=== PATIENT | female | born 1960 | race Caucasian/White ===

== ENCOUNTER 2019-04-17 19:29 | Inpatient (IN) | payer MEDICARE ==
[~2019-04-17] VITALS: Ht 167.6 cm; Wt 56.7 kg
[2019-04-17 20:15] VITALS: BP 121/63
--- NOTE | 2019-04-17 20:15 | NUR ---
ED Nurse Note: Patient was brought by ambulance from [facility] due to generalized weakness, diarrhea x1 week. AAO x4, Vss at this time, patient has history of CVA, and due to that has difficulty to speak. Patient has history of suisidal; attempt 3 times, states if she will know how to do that she will do it.
[2019-04-17 20:56] LABS: HEMATOCRIT 41.7 % (37.0-47.0); HEMOGLOBIN 15.2 G/DL (12.0-16.0); MEAN CORPUSCULAR VOLUME 91 FL (80-99); PLATELET COUNT 204 K/UL (150-450); RED CELL DISTRIBUTION WIDTH 10.9 % (11.6-14.8); WHITE BLOOD COUNT 9.6 K/UL (4.8-10.8)
--- NOTE | 2019-04-17 20:59 | Emergency Room Report ---
History of Present Illness General Chief Complaint: Generalized Weakness Source: Patient, Medical Record, EMS Present Illness HPI Patient is a 59-year-old female sent in by nursing facility after increased generalized weakness. Patient reportedly had been having increased diarrhea as well as increased lethargy. She was noted to have prior history of dementia. Allergies: Coded Allergies: No Known Allergies (Unverified , 04/17/19) Patient History Past Medical History: see triage record Reviewed Nursing Documentation: PMH: Agreed; PSxH: Agreed Review of Systems All Other Systems: limited - by poor historian Physical Exam Vital Signs Date Time Temp Pulse Resp B/P (MAP) Pulse Ox O2 Delivery O2 Flow Rate FiO2 04/17/19 19:46 98.2 81 16 121/63 (82) 93 Room Air General Appearance: alert, Chronically Ill ENT: hearing grossly normal Neck: limited range of motion Respiratory: wheezing Cardiovascular #1: normal peripheral pulses, regular rate, rhythm Gastrointestinal: normal inspection Musculoskeletal: other - kyphosis Neurologic: normal inspection, alert, other - confused, no focal deficit Psychiatric: anxious Medical Decision Making Diagnostic Impression: Primary Impression: Episode of generalized weakness Additional Impressions: COPD (chronic obstructive pulmonary disease) Dehydration ER Course Patient presented for increased generalized weakness. Differential diagnosis include was not limited to dehydration, hypokalemia, electrolyte abnormality, myasthenia among others. Because of complexity of patient's case laboratory testing and imaging studies were ordered. Patient was noted to have prior history of COPD as well as dementia. She appeared to be chronically ill. Patient noted to have some mild wheezing was given breathing treatment. Laboratory testing showed normal white blood count as well as normal hemoglobin.Patient be admitted to Dr Andre for inpatient management. Labs Test 04/17/19 20:40 White Blood Count 9.6 K/UL (4.8-10.8) Red Blood Count 4.60 M/UL (4.20-5.40) Hemoglobin 15.2 G/DL (12.0-16.0) Hematocrit 41.7 % (37.0-47.0) Mean Corpuscular Volume 91 FL (80-99) Mean Corpuscular Hemoglobin 33.0 PG (27.0-31.0) Mean Corpuscular Hemoglobin Concent 36.4 G/DL (32.0-36.0) Red Cell Distribution Width 10.9 % (11.6-14.8) Platelet Count 204 K/UL (150-450) Mean Platelet Volume 6.2 FL (6.5-10.1) Neutrophils (%) (Auto) % (45.0-75.0) Lymphocytes (%) (Auto) % (20.0-45.0) Monocytes (%) (Auto) % (1.0-10.0) Eosinophils (%) (Auto) % (0.0-3.0) Basophils (%) (Auto) % (0.0-2.0) Last Vital Signs Date Time Temp Pulse Resp B/P (MAP) Pulse Ox O2 Delivery O2 Flow Rate FiO2 04/17/19 19:46 98.2 81 16 121/63 (82) 93 Room Air Status: improved Disposition: ADMITTED INPATIENT Condition: Stable Referrals: Hattie Andre MD (PCP) Dayo Kimbrough MD April 17, 2019 20:59
[2019-04-17] MEDS ORDERED: Albuterol/Ipratropium 3ml neb HHN ONE (21:00)
--- NOTE | 2019-04-17 21:14 | Diagnostic Imaging Report ---
EXAM: XR Chest, 1 View CLINICAL HISTORY: WEAK TECHNIQUE: Frontal view of the chest. COMPARISON: None FINDINGS: Hardware: None. Lungs/pleura: Normal. No focal consolidation. No pleural effusion or pneumothorax. Heart/mediastinum: Normal. No cardiomegaly. Soft tissues: Unremarkable. Bones: No acute fracture. Fusion changes partially visualized in the lower cervical spine. Upper abdomen: Normal. IMPRESSION: No acute disease identified.
[2019-04-17 21:15] LABS: ALANINE AMINOTRANSFERASE 12 U/L (12-78); ALBUMIN 4.1 G/DL (3.4-5.0); ALBUMIN/GLOBULIN RATIO 1.2 (1.0-2.7); ALKALINE PHOSPHATASE 80 U/L (46-116); ANION GAP 7 mmol/L (5-15); ASPARTATE AMINO TRANSFERASE 11 U/L (15-37); BILIRUBIN,TOTAL 0.2 MG/DL (0.2-1.0); BLOOD UREA NITROGEN 12 mg/dL (7-18); CALCIUM 9.4 MG/DL (8.5-10.1); CARBON DIOXIDE 29 MMOL/L (21-32); CHLORIDE 105 MMOL/L (98-107); POTASSIUM 3.9 MMOL/L (3.5-5.1); SODIUM 141 MMOL/L (136-145)
[2019-04-17 21:25] VITALS: BP 121/63
[2019-04-17] MEDS ORDERED: ACETAMINOPHEN500 M3 ORAL (22:24)
[2019-04-17] MEDS ORDERED: DULCOLAX10 MG RC (22:25)
[2019-04-17] MEDS ORDERED: COLACE100 MG ORAL (22:25)
[2019-04-17] MEDS ORDERED: GABAPENTIN100 MG ORAL (22:26)
[2019-04-17] MEDS ORDERED: KEPPRA500 M4 ORAL (22:26)
[2019-04-17] MEDS ORDERED: FLEET ENEMA133 M1 RC (22:26)
[2019-04-17] MEDS ORDERED: MILK OF MA400 MG/51 ORAL (22:27)
[2019-04-17] MEDS ORDERED: QUETIAPINE FUMA25 MG ORAL (22:27)
[2019-04-17] MEDS ORDERED: SERTRALINE HCL25 MG ORAL (22:28)
[2019-04-17] MEDS ORDERED: ZOFRAN4 M3 ORAL (22:28)
--- NOTE | 2019-04-17 23:13 | NUR ---
NURSE NOTES: Received patient from ED, report is given by Meli CARSON, patient was transported by gurney, can ambulate with assistance, patient states that she has trouble with her vision, seeing shadows, no acute distress noted, orders obtained from MD and carried out. Patient was oriented to the room, call light is within reach, bed is in low position, locked and alarm is on. Will continue to monitor for safety and comfort. Consult been ordered with Dr. Mar as patient has history with suicidal ideations.
[2019-04-17] MEDS ORDERED: Albuterol/Ipratropium 3ml neb HHN PRN (23:45)
[2019-04-18] VITALS: BP 131/70
[2019-04-18] MEDS ORDERED: Fleet's Enema 133ml RECTAL PRN
[2019-04-18] MEDS: Acetaminophen 500mg (ES) tab ORAL SCH ×4 (00:47→18:00)
--- NOTE | 2019-04-18 01:56 | NUR ---
ED Nurse Note: Patient was admited to [facility] due to generalized weakness, diarrhea x 1 weeks, dehydration. AAO x4, VSS at this time, skin is dry, intact. Patient was transfered via [facility] belongings.
[2019-04-18 06:49] LABS: BASOPHILS % (AUTO) 1.3 % (0.0-2.0); EOSINOPHILS % (AUTO) 4.7 % (0.0-3.0); HEMATOCRIT 40.4 % (37.0-47.0); HEMOGLOBIN 14.3 G/DL (12.0-16.0); LYMPHOCYTES % (AUTO) 49.9 % (20.0-45.0); MEAN CORPUSCULAR VOLUME 95 FL (80-99); MONOCYTES % (AUTO) 6.7 % (1.0-10.0); NEUTROPHILS % (AUTO) 37.5 % (45.0-75.0); PLATELET COUNT 181 K/UL (150-450); RED BLOOD COUNT 4.26 M/UL (4.20-5.40); RED CELL DISTRIBUTION WIDTH 11.4 % (11.6-14.8); WHITE BLOOD COUNT 7.7 K/UL (4.8-10.8)
--- NOTE | 2019-04-18 06:59 | NUR ---
HAND-OFF: Report given to Jefe CARSON. Addendum: 04/18/19 at 0701 by TIM PENA RN Report is given to Sravani CARSON
[2019-04-18 07:05] LABS: ALANINE AMINOTRANSFERASE 11 U/L (12-78); ALBUMIN 3.5 G/DL (3.4-5.0); ALBUMIN/GLOBULIN RATIO 1.1 (1.0-2.7); ALKALINE PHOSPHATASE 71 U/L (46-116); ANION GAP 9 mmol/L (5-15); ASPARTATE AMINO TRANSFERASE 17 U/L (15-37); BILIRUBIN,TOTAL 0.4 MG/DL (0.2-1.0); BLOOD UREA NITROGEN 10 mg/dL (7-18); CARBON DIOXIDE 26 MMOL/L (21-32); CHLORIDE 108 MMOL/L (98-107); CHOLESTEROL 100 MG/DL (< 200); CREATININE 1.1 MG/DL (0.55-1.30); HDL CHOLESTEROL 42 MG/DL (40-60); POTASSIUM 3.7 MMOL/L (3.5-5.1); SODIUM 143 MMOL/L (136-145); TRIGLYCERIDES 132 MG/DL (30-150)
--- NOTE | 2019-04-18 07:30 | NUR ---
NURSE NOTES: RECEIVED PATIENT A/A/OX4 IN BED LYING COMFORTABLY, NO C/O PAIN/DISCOMFORT NOTED. ABLE TO AMBULATE. VERBALIZE NEEDS. BED IS IN THE LOWEST POSITION. SIDERAILS ARE UP X2. BED ALARM IS ON AND LOCK. CALL LIGHT IS WITHIN REACH. WILL CONT TO MONITOR.
[2019-04-18 08:00] VITALS: BP 128/78
--- NOTE | 2019-04-18 08:27 | History & Physical ---
History and Physical History & Physicial Dictation completed. Hattie Andre MD Apr 18, 2019 08:27
--- NOTE | 2019-04-18 08:28 | General Progress Note ---
Assessment/Plan Assessment/Plan: Seen and examined. 1- Ataxic gate 2- Deconditioning 3- Weakness Plan: psych, Neuro, PT /OT consulted Subjective Allergies: Coded Allergies: No Known Allergies (Unverified , 04/17/19) Objective Last 24 Hour Vital Signs Date Time Temp Pulse Resp B/P (MAP) Pulse Ox O2 Delivery O2 Flow Rate FiO2 04/18/19 00:00 98.1 81 18 131/70 (90) 04/17/19 23:09 Room Air 04/17/19 22:50 98.0 78 18 145/76 99 Room Air 04/17/19 21:41 84 18 100 Room Air 21 04/17/19 21:30 78 18 98 Room Air 21 04/17/19 21:30 76 18 98 Room Air 21 04/17/19 21:25 98.2 78 16 121/63 93 Room Air 04/17/19 20:15 81 16 Room Air 04/17/19 20:15 98.2 16 121/63 93 Room Air 04/17/19 19:46 98.2 81 16 121/63 (82) 93 Room Air Laboratory Tests 04/17/19 20:40: White Blood Count 9.6, Red Blood Count 4.60, Hemoglobin 15.2, Hematocrit 41.7, Mean Corpuscular Volume 91, Mean Corpuscular Hemoglobin 33.0H, Mean Corpuscular Hemoglobin Concent 36.4H, Red Cell Distribution Width 10.9L, Platelet Count 204 , Mean Platelet Volume 6.2L, Neutrophils (%) (Auto) , Lymphocytes (%) (Auto) , Monocytes (%) (Auto) , Eosinophils (%) (Auto) , Basophils (%) (Auto) , Differential Total Cells Counted 100, Neutrophils % (Manual) 28L, Lymphocytes % (Manual) 63H, Monocytes % (Manual) 6, Eosinophils % (Manual) 2, Basophils % ( Manual) 1, Band Neutrophils 0, Platelet Estimate Adequate, Platelet Morphology Normal, Red Blood Cell Morphology Normal, Sodium Level 141, Potassium Level 3.9 , Chloride Level 105, Carbon Dioxide Level 29, Anion Gap 7, Blood Urea Nitrogen 12, Creatinine 1.0, Estimat Glomerular Filtration Rate 56.5, Glucose Level 95, Lactic Acid Level 1.30, Calcium Level 9.4, Total Bilirubin 0.2, Aspartate Amino Transf (AST/SGOT) 11L, Alanine Aminotransferase (ALT/SGPT) 12, Alkaline Phosphatase 80, Total Protein 7.6, Albumin 4.1, Globulin 3.5, Albumin/Globulin Ratio 1.2 04/18/19 05:20: White Blood Count 7.7, Red Blood Count 4.26, Hemoglobin 14.3, Hematocrit 40.4, Mean Corpuscular Volume 95, Mean Corpuscular Hemoglobin 33.5H, Mean Corpuscular Hemoglobin Concent 35.4, Red Cell Distribution Width 11.4L, Platelet Count 181, Mean Platelet Volume 6.9, Neutrophils (%) (Auto) 37.5L, Lymphocytes (%) (Auto) 49.9H, Monocytes (%) (Auto) 6.7, Eosinophils (%) (Auto) 4.7H, Basophils (%) ( Auto) 1.3, Sodium Level 143, Potassium Level 3.7, Chloride Level 108H, Carbon Dioxide Level 26, Anion Gap 9, Blood Urea Nitrogen 10, Creatinine 1.1, Estimat Glomerular Filtration Rate 50.7, Glucose Level 83, Calcium Level 9.0, Total Bilirubin 0.4, Aspartate Amino Transf (AST/SGOT) 17, Alanine Aminotransferase ( ALT/SGPT) 11L, Alkaline Phosphatase 71, Total Protein 6.7, Albumin 3.5, Globulin 3.2, Albumin/Globulin Ratio 1.1, Hemoglobin A1c 5.1, Triglycerides Level 132, Cholesterol Level 100, LDL Cholesterol 41, HDL Cholesterol 42, Cholesterol/HDL Ratio 2.4L Height (Feet): 5 Height (Inches): 6.00 Weight (Pounds): 125 Hattie Andre MD Apr 18, 2019 08:28
[2019-04-18] MEDS: Milk of Magnesia 30ml Ud ORAL SCH (10:08)
[2019-04-18] MEDS: Sertraline 50mg tab ORAL SCH (10:09)
[2019-04-18] MEDS: Docusate 100mg cap ORAL SCH ×2 (10:09→18:00)
[2019-04-18] MEDS: Enoxaparin 40mg Inj SUBQ SCH (10:10)
--- NOTE | 2019-04-18 11:00 | NUR ---
NURSE NOTES: upper and lower dentures are placed in orange container. No acute resp distress noted. No c/o pain/discomfort noted. siderails are padded sec to seizures. patient is legally blind and instructed to call and use the call light whenever she needs to go to the bathroom. bed is in the lowest position. siderails are up x3. bed is lock @ all times and alarm activated. will cont to monitor.
[2019-04-18 12:00] VITALS: BP 104/73
[2019-04-18 16:00] VITALS: BP 115/69
--- NOTE | 2019-04-18 16:50 | NUR ---
NURSE NOTES: Sravani MORATAYA brought patient by bed in stable condition. Alert and oriented x4. No complain of pain or distress at this time. IV dressing intact and dry. Belonging checked. Bed lowest position. Call light within reach. Will continue to monitor.
--- NOTE | 2019-04-18 17:01 | NUR ---
NURSE NOTES: transferred patient to [facility] rm [id number]. report given to YAMILETH Nunez. patient is in stable condition. personal belongings noted. upper and lower dentures are placed in orange container. $40 is in the bridget pocket and added on the list. reviewed and noted with YAMILETH Nunez. No acute resp distress noted. No c/o pain/discomfort noted. siderails are padded sec to seizures. patient is legally blind and instructed to call and use the call light whenever she needs to go to the bathroom. bed is in the lowest position. siderails are up x3. bed is lock @ all times and alarm activated. will cont to monitor.
--- NOTE | 2019-04-18 17:38 | NUR ---
CASE MANAGEMENT: INITIAL REVIEW 59 YO F CAROL FROM [facility] CC: GEN WEAKNESS. PMHx: POOR HISTORIAN SI:WEAKNESS. COLITIS. T 98.2 HR 81 RR 16 B/P 121/63 SATS 93% ONRA AST 11 IS: NS BOLUS X1 PATIENT ADMITTED TO MED/SURG 04/17/2019 @ 2046 DCP: PATIENT TO BE DISCHARGED TO SNF ONCE MEDICALLY CLEARED.
--- NOTE | 2019-04-18 19:30 | NUR ---
NURSE NOTES: Received patient from Adwoa RN. Patient asleep in bed, arousable to name, on room air, no s/s respiratory distress. Alert and oriented x3. Bed in low position, bed locked, call light within reach. Instructed patient to call for staff assistance if she needs to go to the bathroom.
--- NOTE | 2019-04-18 19:30 | NUR ---
HAND-OFF: Report given to Cecilio CARSON. Patient in stable condition.
[2019-04-18 20:00] VITALS: BP 123/77
--- NOTE | 2019-04-18 20:50 | NUR ---
NURSE NOTES: Patient c/o cough, administered cepacol lozenge prn.
--- NOTE | 2019-04-18 22:00 | NUR ---
NURSE NOTES: Patient asleep in bed, no further coughing observed, bed in low position, locked.
--- NOTE | 2019-04-18 22:15 | History and Physical Report ---
DATE OF ADMISSION: 04/17/2019 SOURCE OF INFORMATION: Patient and EMR. HISTORY OF PRESENT ILLNESS: The patient is a 59-year-old female with history of nonspecific neurologic disease manifested by ambulation and gait problem and tremors recently. The patient is currently residing in a [place] [facility] facility and has been noticed to manifest more weakness and problem with the gait. The patient is suffering from dementia and has been noticed recently that is less coherent, ended up with a concern of altered mental status. Initial evaluation in the emergency room shows stable vital signs. The patient has been admitted for additional evaluations. At the time of evaluation, the patient appears to be a poor historian, however, denies chest pain, shortness of breath, nausea, vomiting, diarrhea, or constipation. No fever. No chills. No productive cough. ALLERGIES: NKDA. PAST MEDICAL HISTORY: Including, but not limited to chronic pain, psychiatric disorder, COPD. FAMILY HISTORY: Noncontributory. SOCIAL HISTORY: The patient denies history of illicit drug abuse, smoking, or alcohol abuse (cannot be verified). PHYSICAL EXAMINATION: VITAL SIGNS: Blood pressure 120/60, temperature 98.2, pulse ox 98% on room air, pulse rate 81, respiratory rate 18. HEAD AND NECK: Atraumatic and normocephalic. CHEST: Clear to auscultation. HEART: S1 and S2. Regular rate and rhythm. ABDOMEN: Soft. No organomegaly. MUSCULOSKELETAL: Nonspecific tremors in the extremities. Diffuse weakness and deconditioning in the extremities, wide base gait, assistant activities director for ambulation. NEUROLOGIC: The patient is awake and alert x2. LABORATORY AND DIAGNOSTIC DATA: Labs dated 04/17/2019 shows WBC 9.6, hemoglobin 15.2, and platelets of 204,000. Chest x-ray dated 04/17/2019 is unremarkable for any acute pathology. ASSESSMENT AND PLAN: 1. Ataxia, timeline unknown. 2. Deconditioning. 3. COPD. 4. Generalized weakness. PLAN OF CARE: We will resume home medications. We will consult the psychiatrist, Neurology, PT, OT. Hattie Andre M.D. DR: Casi JOB#: [id number] CC:
[2019-04-19] VITALS: BP 117/74
[2019-04-19] MEDS: Acetaminophen 500mg (ES) tab ORAL SCH ×4 (00:40→18:04)
[2019-04-19 04:00] VITALS: BP 141/78
[2019-04-19 08:00] VITALS: BP 104/71
--- NOTE | 2019-04-19 08:02 | NUR ---
HAND-OFF: Report given to Gwen CARSON. Plan of care endorsed.
--- NOTE | 2019-04-19 08:13 | NUR ---
NURSE NOTES: Pt laying in bed, breakfast is at bedside. Refused to eat, refused substitute.
[2019-04-19] MEDS: Enoxaparin 40mg Inj SUBQ SCH ×3 (09:00→09:36)
[2019-04-19] MEDS: Sertraline 50mg tab ORAL SCH (09:29)
[2019-04-19] MEDS: Docusate 100mg cap ORAL SCH ×2 (09:33→17:31)
[2019-04-19] MEDS: Milk of Magnesia 30ml Ud ORAL SCH (09:33)
--- NOTE | 2019-04-19 10:59 | General Progress Note ---
Assessment/Plan Assessment/Plan: PHYSICAL EXAMINATION: VITAL SIGNS: Blood pressure 120/60, temperature 98.2, pulse ox 98% on room air, pulse rate 81, respiratory rate 18. HEAD AND NECK: Atraumatic and normocephalic. CHEST: Clear to auscultation. HEART: S1 and S2. Regular rate and rhythm. S: I am very weak O: seem comfortable, complaint of lack of energy. ABDOMEN: Soft. No organomegaly. MUSCULOSKELETAL: Nonspecific tremors in the extremities. Diffuse weakness and deconditioning in the extremities, wide base gait, golf course assistant for ambulation. NEUROLOGIC: The patient is awake and alert x2. LABORATORY AND DIAGNOSTIC DATA: Labs dated Apr 18 reviewed Chest x-ray dated 04/17/2019 is unremarkable for any acute pathology. ASSESSMENT AND PLAN: 1. Ataxia, timeline unknown. 2. Deconditioning. 3. COPD. 4. Generalized weakness. Plan: Pending psych, Neuro, Evaluation Subjective Allergies: Coded Allergies: No Known Allergies (Unverified , 04/17/19) Objective Last 24 Hour Vital Signs Date Time Temp Pulse Resp B/P (MAP) Pulse Ox O2 Delivery O2 Flow Rate FiO2 04/19/19 04:00 98.1 69 20 141/78 (99) 97 04/19/19 00:00 97.6 74 22 117/74 (88) 95 04/18/19 21:00 Room Air 04/18/19 20:00 97.8 62 12 123/77 (92) 96 04/18/19 16:00 98.0 68 17 115/69 (84) 95 04/18/19 12:53 98.6 04/18/19 12:00 97.5 82 17 104/73 (83) 94 Intake and Output 04/18/19 04/19/19 18:59 06:59 Intake Total 240 ml 240 ml Balance 240 ml 240 ml Intake Oral 240 ml 240 ml # Voids 2 2 # Bowel Movements 1 Height (Feet): 5 Height (Inches): 6.00 Weight (Pounds): 125 Hattie Andre MD Apr 19, 2019 10:59
--- NOTE | 2019-04-19 11:18 | NUR ---
NURSE NOTES: Pt sates she is blind therefore call light is in reach. Encouraged pt to put irrigation technician light for assistance. " I have been managing , and will manage" Risk of falling explained. " Fall, I can mange" Did not want to answer questions related to vision, far as images, color , completeness. Placed cover over her head, while teletypewriter operator was speaking to her. Refused Lovenox. Risk and benefit explained. " I do not care Im getting another shot!
--- NOTE | 2019-04-19 11:32 | NUR ---
NURSE NOTES: Pt is not able to reciprocate pt teaching, does not cooperate
[2019-04-19 12:00] VITALS: BP 110/77
[2019-04-19 16:00] VITALS: BP 104/63
--- NOTE | 2019-04-19 19:04 | NUR ---
NURSE NOTES: Requires frequent rounds due to impaired vision. Assisted with grooming. Pt did not eat much states that is her norm. Stool softener held due to report of loose stool no bm this shift. Pt states she has not gotten use to be blind. Lost her vision as a result of a sz. See shadows. Encouraged to press call light for bathroom needs
--- NOTE | 2019-04-19 19:45 | NUR ---
NURSE NOTES: Report taken from YAMILETH Hidalgo. Patient in bed and awake, A&Ox3. No signs of distress on room air. Minor complaint of pain, stating having a constant headache, 3/. No skin issues. IV site c/d/i no fluid running currently. Patient is legally blind, needs assistance with most activities. Able to ambulate with assist. Bed in lowest position, call light within reach.
--- NOTE | 2019-04-19 19:56 | NUR ---
HAND-OFF: Report given to Oskar CARSON.
[2019-04-19 20:00] VITALS: BP 106/70
--- NOTE | 2019-04-19 23:47 | Consultation ---
History of Present Illness General Date patient seen: Apr 19, 2019 Chief Complaint: Generalized Weakness Referring physician: Dr. Andre Present Illness HPI The patient is a 59-year-old female with history of nonspecific neurologic disease manifested by ambulation and gait problem and tremors recently. The patient is currently residing in a custodial facility and has been noticed to manifest more weakness and problem with the gait. The patient is suffering from dementia and has been noticed recently that is less coherent, ended up with a concern of altered mental status. Initial evaluation in the emergency room shows stable vital signs. The patient has been admitted for additional evaluations. At the time of evaluation, the patient appears to be a poor historian, however, denies chest pain, shortness of breath, nausea, vomiting, diarrhea, or constipation. No fever. No chills. No productive cough. She has some facial asymmetry but she is essentially non focal on exam. Allergies: Coded Allergies: No Known Allergies (Unverified , 04/17/19) Medication History Scheduled Acetaminophen* (Acetaminophen Extra Strength*), 500 MG ORAL Q6H, (Reported) Docusate Sodium* (Colace*), 100 MG ORAL TWICE A DAY, (Reported) Enoxaparin* (Lovenox*), 40 MG SUBQ DAILY, (Reported) Gabapentin* (Gabapentin*), 100 MG ORAL THREE TIMES A DAY, (Reported) Ipratropium/Albuterol Sulfate (DuoNeb 0.5-3(2.5)mg/3ml), 3 ML HHN Q6HR, ( Reported) Levetiracetam (Keppra), 500 MG ORAL EVERY 12 HOURS, (Reported) Levofloxacin* (Levaquin*), 500 MG ORAL DAILY, (Reported) Magnesium Hydroxide* (Milk Of Magnesia*), 30 ML ORAL DAILY, (Reported) Quetiapine Fumarate* (Seroquel*), 50 MG ORAL DAILY, (Reported) Sertraline Hcl* (Sertraline Hcl*), 50 MG ORAL DAILY, (Reported) Scheduled PRN Ondansetron* (Zofran*), 4 MG ORAL Q4HR PRN for Nausea & Vomiting, (Reported) Discontinued Medications Bisacodyl (Dulcolax), 10 MG RC, (Reported) Discontinued Reason: MD discontinued med Dextromethorphan Hbr/B-Fabrizio (Cepacol Sorethroat-Cough Joel*), 1 LOZENGE ORAL, ( Reported) Discontinued Reason: discontinued med Moy Santizo/Karan Santizo (Fleet Enema), 133 ML RC, (Reported) Discontinued Reason: MD discontinued med Patient History Limited by: medical condition History Provided By: Patient, Medical Record Healthcare decision maker Resuscitation status Do Not Resuscitate Advanced Directive on File No Review of Systems Constitutional: Denies: no symptoms, see HPI, chills, sweats, fever, malaise, weakness, other Eye: Denies: no symptoms, see HPI, eye pain, blurred vision, tearing, double vision, nose pain, nose congestion, acuity changes, discharge, other ENT: Denies: no symptoms, see HPI, ear pain, ear discharge, nose pain, nose congestion, throat pain, throat swelling, mouth pain, hearing loss, nasal discharge, other Respiratory: Denies: no symptoms, see HPI, cough, orthopnea, shortness of breath, stridor, wheezing, SALINAS, sputum, other Cardiovascular: Denies: no symptoms, see HPI, chest pain, edema, palpitations, syncope, PND, other Gastrointestinal: Denies: no symptoms, see HPI, abdominal pain, constipation, diarrhea, nausea, vomiting, melena, hematemesis, other Genitourinary: Denies: no symptoms, see HPI, discharge, dysuria, frequency, hematuria, pain, retention, incontinence, urgency, vag bleed/dc, other Musculoskeletal: Denies: no symptoms, see HPI, back pain, gout, joint pain, joint swelling, muscle pain, muscle stiffness, other Skin: Denies: no symptoms, see HPI, rash, change in color, change in hair/nails , dryness, lesions, other Psychiatric: Denies: no symptoms, see HPI, prior hx, anxiety, depressed feelings, emotional problems, SI, HI, hallucinations, other Neurological: Denies: no symptoms, see HPI, headache, numbness, paresthesia, seizure, tingling, tremors, focal weakness, syncope, dizziness, other Endocrine: Denies: no symptoms, see HPI, excessive sweating, flushing, intolerance to temperature, increased thirst, increased urine, unexplained weight loss, other Hematologic/Lymphatic: Denies: no symptoms, see HPI, anemia, blood clots, easy bleeding, easy bruising, swollen glands, diathesis, other Physical Exam General Appearance: WD/WN, no apparent distress, lethargic, confused Lines, tubes and drains: peripheral HEENT: normocephalic, atraumatic, anicteric, mucous membranes moist, PERRL, EOMI, pharynx normal, supple, no JVD Neck: non-tender, normal alignment, supple, normal inspection Respiratory/Chest: chest wall non-tender, lungs clear, normal breath sounds, no respiratory distress, no accessory muscle use Cardiovascular/Chest: no gallop/murmur, no JVD Extremities: no calf tenderness, normal capillary refill, non-pitting, no edema , no cyanosis Skin Exam: normal pigmentation, warm/dry Neurologic: abnormal gait, alert, responsive, abnormal CN, motor weakness, disoriented, depressed affect, other - Tremulous with fluctuating facial asymmetry- non focal exam but generally weak throughout with intention tremor on exam Last 24 Hour Vital Signs Date Time Temp Pulse Resp B/P (MAP) Pulse Ox O2 Delivery O2 Flow Rate FiO2 04/19/19 21:00 Room Air 04/19/19 20:00 97.8 65 16 106/70 (82) 96 04/19/19 16:00 98.2 73 16 104/63 (77) 04/19/19 12:00 97.7 69 18 110/77 (88) 98 04/19/19 09:00 Room Air 04/19/19 08:00 98.5 16 104/71 (82) 98 04/19/19 04:00 98.1 69 20 141/78 (99) 97 04/19/19 00:00 97.6 74 22 117/74 (88) 95 Intake and Output 04/18/19 04/19/19 19:00 07:00 Intake Total 240 ml 240 ml Balance 240 ml 240 ml Intake Oral 240 ml 240 ml # Voids 2 2 # Bowel Movements 1 Height (Feet): 5 Height (Inches): 6.00 Weight (Pounds): 125 Medications Current Medications Medications (Trade) Dose Ordered Sig/Emil Route PRN Reason Start Time Stop Time Status Last Admin Dose Admin Acetaminophen (Tylenol) 500 mg Q6H ORAL 04/18/19 00:00 05/18/19 00:00 04/19/19 18:04 Albuterol/ Ipratropium (Albuterol/ Ipratropium) 3 ml Q6H PRN HHN Shortness of Breath 04/17/19 23:45 04/22/19 23:44 Cetylpyridinium Chloride (Cepacol) 1 lozg Q2H PRN CHI For Cough 04/17/19 23:45 05/17/19 23:44 04/18/19 20:50 Docusate Sodium (Colace) 100 mg TWICE A DAY ORAL 04/18/19 09:00 05/18/19 08:59 04/18/19 10:09 Enoxaparin Sodium (Lovenox) 40 mg DAILY SUBQ 04/18/19 09:00 05/18/19 08:59 04/18/19 10:10 Gabapentin (Neurontin) 100 mg THREE TIMES A DAY ORAL 04/18/19 09:00 05/18/19 08:59 04/19/19 17:31 Levetiracetam (Keppra) 500 mg EVERY 12 HOURS ORAL 04/18/19 09:00 05/18/19 08:59 04/19/19 20:52 Levofloxacin 100 ml @ 100 mls/hr Q24H IVPB 04/18/19 01:00 04/25/19 00:59 04/19/19 00:40 Magnesium Hydroxide (Mom) 30 ml DAILY ORAL 04/18/19 09:00 05/18/19 08:59 04/18/19 10:08 Ondansetron HCl (Zofran) 4 mg Q4H PRN ORAL Nausea & Vomiting 04/18/19 00:00 05/18/19 00:00 Quetiapine Fumarate (SEROquel) 50 mg DAILY ORAL 04/18/19 09:00 05/18/19 08:59 04/19/19 09:30 Sertraline HCl (Zoloft) 50 mg DAILY ORAL 04/18/19 09:00 05/18/19 08:59 04/19/19 09:29 Assessment/Plan Problem List: (1) Weak ICD Codes: R53.1 - Weakness SNOMED: 14941340 (2) Dementia ICD Codes: F03.90 - Unspecified dementia without behavioral disturbance SNOMED: 16397515 (3) Parkinsonian tremor ICD Codes: G20 - Parkinson's disease SNOMED: 205235985 Status: stable Assessment/Plan: Continue Q4 Hour Neuro OBs Consider MRI to rule out any acute or chronic stroke May have as outpatient. Likely Parkinsonian presentation. Can confirm this with KIMBERLY scan as outpatient. Patient denies seizure disorder at this time. SBP<140 Check TSH Na 135-145 ASA 81mg QD Pam Bradford N.P. Apr 19, 2019 23:47
[2019-04-20] VITALS: BP 110/60
[2019-04-20] MEDS: Acetaminophen 500mg (ES) tab ORAL SCH ×4 (00:12→17:22)
[2019-04-20 04:00] VITALS: BP 128/62
--- NOTE | 2019-04-20 07:18 | NUR ---
HAND-OFF: Report given to YAMILETH Orona. Patient is asleep in bed, VS stable.
--- NOTE | 2019-04-20 07:25 | NUR ---
NURSE NOTES: ASLEEP.PAIN SCALE 3/10. IN NO APPARENT DISTRESS.
[2019-04-20 08:00] VITALS: BP 109/57
[2019-04-20] MEDS: Docusate 100mg cap ORAL SCH ×2 (08:35→17:22)
[2019-04-20] MEDS: Sertraline 50mg tab ORAL SCH (08:35)
[2019-04-20] MEDS: Milk of Magnesia 30ml Ud ORAL SCH (08:36)
[2019-04-20] MEDS: Enoxaparin 40mg Inj SUBQ SCH (08:38)
--- NOTE | 2019-04-20 10:23 | General Progress Note ---
Assessment/Plan Assessment/Plan: S: I am feeling very tired O: appears comfortable, needs help for adls PHYSICAL EXAMINATION:HEAD AND NECK: Atraumatic and normocephalic. CHEST: Clear to auscultation. HEART: S1 and S2. Regular rate and rhythm.ABDOMEN: Soft. No organomegaly. MUSCULOSKELETAL: Nonspecific tremors in the extremities. Diffuse weakness and deconditioning in the extremities, wide base gait, college sports assistant for ambulation. NEUROLOGIC: The patient is awake and alert x2. LABORATORY AND DIAGNOSTIC DATA: Labs dated Apr 19 reviewed Chest x-ray dated 04/17/2019 is unremarkable for any acute pathology. ASSESSMENT AND PLAN: 1. Ataxia, timeline unknown. 2. Deconditioning. 3. COPD. 4. Generalized weakness. Plan: Notes from Neuro reviewed Subjective Allergies: Coded Allergies: No Known Allergies (Unverified , 04/17/19) Objective Last 24 Hour Vital Signs Date Time Temp Pulse Resp B/P (MAP) Pulse Ox O2 Delivery O2 Flow Rate FiO2 04/20/19 08:00 98.8 61 20 109/57 (74) 99 04/20/19 04:00 97.6 60 16 128/62 (84) 96 04/20/19 00:00 97.8 64 16 110/60 (77) 94 04/19/19 21:00 Room Air 04/19/19 20:00 97.8 65 16 106/70 (82) 96 04/19/19 19:08 71 18 97 Room Air 21 04/19/19 16:00 98.2 73 16 104/63 (77) 04/19/19 12:00 97.7 69 18 110/77 (88) 98 Intake and Output 04/19/19 04/20/19 19:00 07:00 Intake Total 500 ml Balance 500 ml Intake Oral 500 ml # Voids 3 2 Height (Feet): 5 Height (Inches): 6.00 Weight (Pounds): 125 Hattie Andre MD Apr 20, 2019 10:23
[2019-04-20 12:00] VITALS: BP 106/59
--- NOTE | 2019-04-20 13:15 | NUR ---
DISCHARGE PLAN CLINICALS FAXED TO [facility] [address] T: [phone] F: [phone] AWAIT ROOM ASSIGNMENT
--- NOTE | 2019-04-20 13:19 | NUR ---
CASE MANAGEMENT:REVIEW 04/20/19 SI: ATAXIA. COPD 98.8 61 20 109/57 99% ON RA IS: LEVAQUIN PO QD NEURONTIN PO TID KEPPRA PO Q12 ZOLOFT PO QD LOVENOX SQ QD : MED/SURG STATUS [address] [facility]
--- NOTE | 2019-04-20 14:28 | NUR ---
DISCHARGE PLANNED PATIENT WILL RETURN TO [facility] [address] ROOM [address] SKILLED T: [phone] FOR NURSE TO NURSE REPORT [facility] HAS BEEN ARRANGED FOR [address]
[2019-04-20] MEDS ORDERED: LOVENOX10 M4 SUBQ (14:41)
[2019-04-20] MEDS ORDERED: LEVAQUIN500 MG ORAL (14:42)
[2019-04-20] MEDS ORDERED: DUONEB 0.5-3(2.53 ML HHN (14:44)
[2019-04-20] MEDS ORDERED: CEPACOL SORETH1 EACH ORAL (14:45)
[2019-04-20 16:02] VITALS: BP 128/75
--- NOTE | 2019-04-20 19:00 | NUR ---
NURSE NOTES: RESTING IN BED. IN NO DISTRESS. FOR TRANSFER TO [facility]. REPORT GIVE TO GABRIELE CARSON. WAITING FOR AMBULANCE FOR SHANK SANDER.
--- NOTE | 2019-04-20 19:33 | NUR ---
HAND-OFF: Report given to FLY MARIE.
--- NOTE | 2019-04-20 19:39 | NUR ---
NURSE NOTES: Received patient in bed, awake, alert, oriented, awaiting to be discharged to [facility] rehab, verified with ambulance on [facility]. Patient is stable at this time.
--- NOTE | 2019-04-21 00:30 | Progress Note ---
DATE: 04/20/2019 SUBJECTIVE: The patient is calm and cooperative, sitting on her bed, has episodes of anxiety. She has cognitive impairment, poor memory. She knows her name and she knows in the hospital, more clear today. MENTAL STATUS EXAMINATION: The patient is alert and oriented to time, self, and place. Mood is neutral to anxious. Affect is constricted. Congruent with mood. Thought process is concrete. Thought content, no suicidal or homicidal ideation. ASSESSMENT: 1. Dementia. 2. Anxiety disorder. 3. Depression. PLAN: We will continue current medications. Provide the patient with reality orientation and supportive therapy. Dia Mar M.D. DR: CAROLINE JOB#: [id number] CC:
--- NOTE | 2019-04-21 08:00 | Consultation ---
DATE OF CONSULTATION: 04/19/2019 HISTORY OF PRESENT ILLNESS: The patient is a 59-year-old female with a history of COPD, chronic pain, dementia, depression, and anxiety, who has been admitted to the hospital for medical stabilization. The patient during the evaluation is having cognitive impairment and is not engaged during the evaluation and unable to provide history, has anxiety, depressed mood, anhedonia, worthless, and hopelessness. The patient was seen on . PAST PSYCHIATRIC HISTORY: Depression, anxiety, and dementia. PAST MEDICAL HISTORY: As above. ALLERGIES: No known drug allergies. SUBSTANCE ABUSE HISTORY: No known history of illicit drug use or alcohol. MENTAL STATUS EXAMINATION: The patient is alert and oriented times self and place. Mood is anxious and dysphoric. Affect is constricted, congruent with mood. Thought process is concrete. Thought content, no suicidal or homicidal ideation. Memory is impaired. ASSESSMENT: AXIS I: Major depressive disorder, anxiety disorder, and dementia. AXIS II: Deferred. AXIS III: As above. AXIS IV: Low. AXIS V: 25. PLAN: 1. The patient will be continued on Zoloft. 2. Continue the Seroquel. 3. Provide the patient with reality orientation and supportive therapy. Dia Mar M.D. DR: ERIKA JOB#: [id number] CC:
[2019-04-21] MEDS ORDERED: Levofloxacin 500mg tab ORAL SCH (09:00)
--- NOTE | 2019-04-21 12:03 | Discharge Summary ---
Discharge Summary Discharge Summary _ DATE OF ADMISSION: 04/17/2019 DATE OF DISCHARGE: 04/20/2019 DISCHARGED BY: Dr. Andre REASON FOR ADMISSION: 59 years old female with past medical history of CVA, seizure disorder, was sent from the senior care facility for evaluation due to generalized weakness. Patient reportedly had diarrhea and increased lethargy. Upon evaluation vital signs were stable. Laboratory work-up revealed no leukocytosis , hemoglobin 15.2 , hematocrit 41.7 , platelet count 204. Stable electrolytes and renal parameters. Lactic acid 1.3. Chest x-ray revealed no acute cardiopulmonary pathology. Patient subsequently was admitted for further management. CONSULTANTS: neurologist Dr. Hinton psychiatrist [facility] COURSE: Patient admitted to medical surgical floor. Patient started on gentle IV hydration. Renal parameters and electrolytes were closely monitored and remained stable. No diarrhea. Neurology and psychiatric evaluation were requested. Home medications were resumed. Lipid panel remained stable. No evidence of infection. Seizure precaution maintained. Keppra continued. No evidence of seizure activity while in the hospital. Patient was working with physical therapist. Fall precaution maintained. DVT prophylaxis provided. Neurologist followed. Per neurologist, patient likely had Parkinsonian presentation with Parkinsonian tremor. It can be confirmed with KIMBERLY scan as outpatient. Neuro-checks were done every 4 hours, no changes. Neurologist recommended MRI , which can be done as an outpatient. Supplemental oxygen provided as needed to keep pulse oximetry above 92%. Pulmonary toilet was on standby as needed. Pulse oximetry was stable on room air. No signs of respiratory distress. Patient initially started on empiric antibiotics. Blood cultures were negative. No evidence of infection. No fever, no leukocytosis. Antibiotic discontinued. Psychiatrist seen and evaluated patient and diagnosed patient with dementia, Reality orientation and supportive therapy provided. Patient was continued on Zoloft and Seroquel. Supportive care provided. Patient clinically stabilized and was ready for transfer back to senior care facility for continuation of care. FINAL DIAGNOSES: Generalized weakness Dehydration COPD Ataxia Parkinsonian tremor Major depressive disorder Anxiety disorder Dementia DISCHARGE MEDICATIONS: See Medication Reconciliation list. DISCHARGE INSTRUCTIONS: Patient was discharged to the senior care facility. Follow up with medical doctor at the facility. I have been assigned to dictate discharge summary for this account. I was not involved in the patient's management. Myrna Alcantara NP Apr 21, 2019 12:03
== END 2019-04-20 20:10 | DRG 948 ==
LOC: EDBD 19:29 → EMR 20:00 → 4E 20:46 → EDBEDREQ 20:59 → 3E 04-18 16:50
DX: R53.1 Weakness (principal); R27.0 Ataxia, unspecified; J44.9 Chronic obstructive pulmonary disease, unspecified; E86.0 Dehydration; F32.9 Major depressive disorder, single episode, unspecified; Z86.73 Personal history of transient ischemic attack (TIA), and cerebral infarction without residual deficits; F41.9 Anxiety disorder, unspecified; G31.83 Neurocognitive disorder with Lewy bodies; F02.80 Dementia in other diseases classified elsewhere, unspecified severity, without behavioral disturbance, psychotic disturbance, mood disturbance, and anxiety; G40.909 Epilepsy, unspecified, not intractable, without status epilepticus; Z66 Do not resuscitate
CPT/HCPCS: 36415; 71045; 80053; 80061; 80299; 83036; 83605; 85007; 85025; 87040; 87081; 94640; 94664; 96360; 99285; J7620